=== PATIENT | male | born 2000 | race Two or more races ===

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

== ENCOUNTER → 2020-12-24 10:02 | Outpatient (CLI) | payer OTHER | END | disposition home or self-care (01) | LOC: LAB 10:02 | PROVIDERS: ATTEND Radiology Diagnostic Radiology | DX: K30 Functional dyspepsia (principal) ==

== ENCOUNTER 2020-12-25 08:59 | Outpatient (CLI) | payer OTHER | END 2020-12-25 09:14 | disposition home or self-care (01) | LOC: TOM 08:59 | DX: K30 Functional dyspepsia (principal); R10.31 Right lower quadrant pain ==

== ENCOUNTER 2023-02-17 13:50 | Outpatient (CLI) | payer OTHER | END 2023-02-17 13:58 | disposition home or self-care (01) | LOC: RAD 13:50 | DX: J32.0 Chronic maxillary sinusitis (principal) ==